=== PATIENT | male | born 2000 | race Caucasian/White ===

== ENCOUNTER 2018-12-25 01:58 | Emergency (ER) | payer BC, OTHER ==
[~2018-12-25] VITALS: Ht 177.8 cm; Wt 79.4 kg
--- NOTE | 2018-12-25 02:15 | ED Lower Extremity ---
General Stated Complaint: R FOOT PAIN Source: patient History of Present Illness Date Seen by Provider: Dec 25, 2018 Time Seen by Provider: 02:07 Initial Comments PT ARRIVES VIA POV, BUT WANTS WHEELCHAIR ON ARRIVAL PT STATES HE INJURED HIS RIGHT FOOT TODAY AT 1545 STATES HE WAS RUNNING AND HIS RIGHT FOOT/ANKLE TWISTED AND HE FELL ON HIS RIGHT FOOT C/O PAIN TO TOP OF FOOT NO PARESTHESIAS OR MOTOR DEFICITS NO OTHER INJURIES NO PRIOR INJURIES TO THIS FOOT, BUT HAS TWISTED RIGHT ANKLE BEFORE HAS NOT TAKEN ANYTHING FOR PAIN, OR APPLIED ICE, ETC. [facility] STUDENT Allergies and Home Medications Allergies Coded Allergies: No Known Drug Allergies (Unverified , 12/25/18) Home Medications Naproxen 500 Mg Tablet, 500 MG PO BID Prescribed by: RAZ RASMUSSEN on 12/25/18 0251 Patient Home Medication List Home Medication List Reviewed: Yes Review of Systems Constitutional: no symptoms reported Musculoskeletal: see HPI Skin: no symptoms reported Psychiatric/Neurological: No Symptoms Reported Past [id number]-Wowmcz Hx Patient Social History Alcohol Use: Occasionally Uses Recreational Drug Use: Yes (THC) Drug of Choice: THC Smoking Status: Current Someday Smoker Type Used: Cigarettes Recent Foreign Travel: No Contact w/Someone Who Travel: No Past Medical History Surgeries: Yes Tonsillectomy Respiratory: No Cardiac: No Neurological: No Genitourinary: No Gastrointestinal: No Musculoskeletal: No Endocrine: No HEENT: Yes (S/P TONSILLECTOMY) Tonsilitis Cancer: No Psychosocial: No Integumentary: No Blood Disorders: No Physical Exam Vital Signs Vital Signs - First Documented 12/25/18 02:07 Temp 97.5 Pulse 91 Resp 17 B/P (MAP) 142/79 (100) Capillary Refill : Height, Weight, BMI Height: '" Weight: lbs. oz. kg; BMI Method: General Appearance: WD/WN, no apparent distress Legs: right leg normal inspection Knees: right knee normal inspection Ankles: right ankle normal inspection Feet: right foot bone tenderness, right foot limited range of motion, right foot pain, right foot soft tissue tenderness, right foot other (TENDERNESS TO DORSAL ASPECT OF RIGHT FOOT. NO SWELLING OR BRUISING OR ERYTHEMA NOTED. LIMITED ROM DUE TO PAIN. DISTAL MOTOR/SENSORY/VASCULAR INTACT. 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, no motor/sensory deficits, alert, normal mood/affect, oriented x 3 Skin: normal color, warm/dry; No ecchymosis Procedures/Interventions Splinting and Joint Reduction : Raf wrap: Yes Immobilizers: Step Light Walker s/m/lg Progress/Results/Core Measures Results/Orders My Orders Orders - RAZ RASMUSSEN DO Foot, Right, 3 View (12/25/18 02:11) Raf Bandage (12/25/18 02:50) Steplite (12/25/18 02:50) Rx-Naproxen (Rx-Naprosyn) (12/25/18 02:50) Vital Signs/I&O 12/25/18 02:07 Temp 97.5 Pulse 91 Resp 17 B/P (MAP) 142/79 (100) Diagnostic Imaging Comments XRAYS RIGHT FOOT--NO ACUTE PROCESS, PENDING RADIOLOGIST REVIEW Reviewed: Reviewed by Me Departure Impression Primary Impression: Right foot sprain Disposition: 01 HOME, SELF-CARE Condition: Stable Departure-Patient Inst. Referrals: NO,LOCAL PHYSICIAN (PCP) Primary Care Physician BOSTON BARNARD MD Patient Instructions: Sprain (DC) Add. Discharge Instructions: RAF WRAP AND BOOT NEEDED FOR COMFORT ICE TO AREA AT 20 MINUTE INTERVALS ELEVATE FOOT MUCH POSSIBLE TYLENOL NEEDED FOR PAIN FOLLOW UP WITH [facility] IN 1 WEEK IF NO BETTER Scripts Naproxen (Naproxen) 500 Mg Tablet 500 MG PO BID, #20 TAB Prov: RAZ RASMUSSEN DO 12/25/18 RAZ RASMUSSEN DO Dec 25, 2018 02:15
[2018-12-25] MEDS ORDERED: RX-NAPROXEN (NAPROSYN) 250 MG TAB PPK#4 PO STA (02:50)
[2018-12-25] MEDS ORDERED: NAPR-915 PO (02:51)
[2018-12-25] MEDS ORDERED: RX-NAPROXEN (NAPROSYN) 250 MG TAB PPK#4 PO ONE (02:52)
[2018-12-25 03:01] VITALS: BP 130/78
--- NOTE | 2018-12-25 07:42 | Diagnostic Imaging Report ---
INDICATION: Pain FINDINGS: There is no fracture, dislocation, or acute appearing articular incongruity. IMPRESSION: No acute appearing abnormality Dictated by: Dictated on workstation # [id number]
== END 2018-12-25 03:03 | disposition home or self-care (01) ==
LOC: ER 02:01
DX: S93.601A Unspecified sprain of right foot, initial encounter (principal); F12.10 Cannabis abuse, uncomplicated; F17.210 Nicotine dependence, cigarettes, uncomplicated; Z90.89 Acquired absence of other organs; X50.1XXA Overexertion from prolonged static or awkward postures, initial encounter; W19.XXXA Unspecified fall, initial encounter; Y93.02 Activity, running
CPT/HCPCS: 73630